=== PATIENT | female | born 1985 | race Caucasian/White ===

== ENCOUNTER 2016-04-19 23:23 | Emergency (ER) | payer MEDICARE, MEDICAID ==
[~2016-04-19] VITALS: Ht 152.4 cm; Wt 66.8 kg
[~2016-04-19 23:23] MED LIST: AMOXICILLIN 50500 MG PO; AMOXICILLIN 8751 TAB PO; CEPHALEXIN500 M1 PO; CLEOCIN HC150 MG/CAP PO; DOXYCYCLINE 10100 MG PO; HUMALOG100 U/ML SC; INSULIN HUMA100 U/ML IJ; LANTUS100 U/ML; LEVEMIR; LORTAB 5/500 501 TAB PO; MOTRIN 600600 MG/TAB PO; NAPROSYN500 MG PO; NORCO 325 MG-51 TAB PO; NOVLOG; NOVLOG SQ; NOVOLOG 100U100 U/M1 SC; NOVOLOG 100U100 U/M1 SQ; NYSTATIN CREAM15 GM TP; PRENATAL1 TA1 PO; PROVENTIL0.09 MG/A1 IH; RISPERDAL 1M1 MG/TAB PO; SEPTRA DS 8001 TAB PO; TOPAMAX 25MG25 M1 PO; TOPAMAX50 MG PO; TRESIBA FL100 UNIT/1 SQ; TRESIBA FL200 UNIT/1 SQ; TYLENOL 325MG325 MG PO; ULTRAM 50MG TAB50 MG PO; ZOFRAN8 MG PO
[2016-04-19 23:26] VITALS: TEMP 97
[2016-04-20 00:07] LABS: VENOUS BLOOD GAS BE -0.5 (-4-4); VENOUS BLOOD GAS SAO2 67.5 % (60-80)
[2016-04-20 00:08] LABS: VENOUS BLOOD GAS SITE VENIPUNCTURE
[2016-04-20 00:11] LABS: BASO % 0.9 % (0.0-2.0); EOS # 0.1 (0.0-0.7); EOS % 2.9 % (0-4.0); GRAN # 2.6 (1.4-6.5); GRAN % 58.3 % (42.2-75.2); HEMATOCRIT 38.2 % (37.0-47.0); HEMOGLOBIN 13.1 g/dl (12.5-16.0); LYMPH # 1.3 (1.2-3.4); LYMPH % 29.2 % (20.0-51.0); MEAN CELL VOLUME 89 fl (80.0-100.0); MEAN CORPUSCULAR HEMOGLOBIN 31 pg (27.0-31.0); MEAN CORPUSCULAR HGB CONC 34 g/dl (33.0-37.0); MEAN PLATELET VOLUME 11.6 fl (7.4-10.4); MONO # 0.4 (0.1-0.6); MONO % 8.5 % (1.7-9.3); PLATELET COUNT 171 K/mm3 (130-400); RED BLOOD COUNT 4.29 M/mm3 (4.10-5.30); REDCELL DISTRIBUTION WIDTH-CV 11.8 % (11.5-14.5); WHITE BLOOD COUNT 4.5 K/mm3 (4.8-10.8)
[2016-04-20 00:20] LABS: ADJUSTED CALCIUM 9.2 mg/dL (8.4-10.2); ALANINE AMINOTRANSFERASE 29 U/L (9-52); ALBUMIN 3.9 gm/dL (3.5-5.0); ALKALINE PHOSPHATASE 84 U/L (50-136); ANION GAP 11 mmol/L (7-16); BILIRUBIN,TOTAL 0.5 mg/dL (0.0-1.0); BLOOD UREA NITROGEN 14 mg/dL (7-17); CALCIUM 9.1 mg/dL (8.4-10.2); CARBON DIOXIDE 26 mmol/L (22-30); CHLORIDE 99 mmol/L (98-107); CREATININE, serum 0.76 mg/dL (0.52-1.25); POTASSIUM 4.6 mmol/L (3.4-5.0); SODIUM 137 mmol/L (137-145); TOTAL PROTEIN 7.2 gm/dL (6.4-8.2)
[2016-04-20 00:24] LABS: GLUCOSE 418 mg/dL (74-106)
[2016-04-20 01:52] VITALS: BP 119/74; PULSE 94
[2016-04-20] MEDS ORDERED: TUSS PO ×2 (16:48→18:52)
[2016-04-20] MEDS ORDERED: ZITHROMAX 250M250 MG PO ×2 (16:48→18:52)
== END 2016-04-20 01:52 | disposition home or self-care (01) ==
LOC: COL.ER 23:23
PROVIDERS: Physician Assistant
DX: E10.65 Type 1 diabetes mellitus with hyperglycemia (principal); Z79.4 Long term (current) use of insulin
CPT/HCPCS: J1815; J2405; J7030

== ENCOUNTER 2016-04-20 15:16 | Emergency (ER) | payer MEDICARE, MEDICAID ==
[~2016-04-20] VITALS: Ht 152.4 cm; Wt 58.6 kg
[2016-04-20 15:21] VITALS: TEMP 97.6
[2016-04-20] MEDS ORDERED: ZITHROMAX 250M250 MG PO ×2 (16:48→18:52)
[2016-04-20] MEDS ORDERED: TUSS PO ×2 (16:48→18:52)
[2016-04-20 17:00] VITALS: BP 118/72; PULSE 84
== END 2016-04-20 17:08 | disposition home or self-care (01) ==
LOC: COL.ER 15:16
DX: E10.65 Type 1 diabetes mellitus with hyperglycemia (principal); Z79.4 Long term (current) use of insulin; J06.9 Acute upper respiratory infection, unspecified
CPT/HCPCS: J1815

== ENCOUNTER 2016-04-20 17:13 | Emergency (ER) | payer MEDICARE, MEDICAID ==
[~2016-04-20] VITALS: Ht 152.4 cm; Wt 58.6 kg
[~2016-04-20 17:13] MED LIST changes: +TUSS PO; +ZITHROMAX 250M250 MG PO
[2016-04-20 17:15] VITALS: TEMP 98
[2016-04-20 18:14] LABS: VENOUS BLOOD GAS BE 1.8 (-4-4); VENOUS BLOOD GAS SAO2 40.1 % (60-80)
[2016-04-20 18:15] LABS: VENOUS BLOOD GAS SITE VENIPUNCTURE
[2016-04-20 18:21] LABS: BASO % 0.8 % (0.0-2.0); EOS # 0.1 (0.0-0.7); EOS % 2.4 % (0-4.0); GRAN # 1.9 (1.4-6.5); GRAN % 49.7 % (42.2-75.2); HEMATOCRIT 40.7 % (37.0-47.0); HEMOGLOBIN 13.9 g/dl (12.5-16.0); LYMPH # 1.5 (1.2-3.4); LYMPH % 39.3 % (20.0-51.0); MEAN CELL VOLUME 89 fl (80.0-100.0); MEAN CORPUSCULAR HEMOGLOBIN 30 pg (27.0-31.0); MEAN CORPUSCULAR HGB CONC 34 g/dl (33.0-37.0); MEAN PLATELET VOLUME 11.7 fl (7.4-10.4); MONO # 0.3 (0.1-0.6); MONO % 7.8 % (1.7-9.3); PLATELET COUNT 188 K/mm3 (130-400); RED BLOOD COUNT 4.58 M/mm3 (4.10-5.30); REDCELL DISTRIBUTION WIDTH-CV 11.8 % (11.5-14.5); WHITE BLOOD COUNT 3.7 K/mm3 (4.8-10.8)
[2016-04-20 18:27] LABS: PH 6 (5-8); URINE APPEARANCE Clear; URINE BACTERIA None Seen /hpf; URINE BILIRUBIN Negative (NEGATIVE); URINE BLOOD Negative (NEGATIVE); URINE COLOR Yellow; URINE GLUCOSE 3+ (NEGATIVE); URINE KETONE Trace (NEGATIVE); URINE RBC 0-2 /hpf; URINE UROBILINOGEN Negative (NEGATIVE); URINE WBC 0-2 /hpf
[2016-04-20 18:32] LABS: ADJUSTED CALCIUM 9.6 mg/dL (8.4-10.2); ALANINE AMINOTRANSFERASE 25 U/L (9-52); ALBUMIN 3.9 gm/dL (3.5-5.0); ALKALINE PHOSPHATASE 74 U/L (50-136); ANION GAP 13 mmol/L (7-16); BILIRUBIN,TOTAL 0.6 mg/dL (0.0-1.0); BLOOD UREA NITROGEN 10 mg/dL (7-17); CALCIUM 9.5 mg/dL (8.4-10.2); CARBON DIOXIDE 26 mmol/L (22-30); CHLORIDE 97 mmol/L (98-107); CREATININE, serum 0.67 mg/dL (0.52-1.25); GLUCOSE 313 mg/dL (74-106); POTASSIUM 4.5 mmol/L (3.4-5.0); SODIUM 136 mmol/L (137-145); TOTAL PROTEIN 7.6 gm/dL (6.4-8.2)
[2016-04-20] MEDS ORDERED: TUSS PO (18:52)
[2016-04-20] MEDS ORDERED: ZITHROMAX 250M250 MG PO (18:52)
[2016-04-20 19:10] VITALS: BP 111/81; PULSE 98
== END 2016-04-20 19:11 | disposition home or self-care (01) ==
LOC: COL.ER 17:13
PROVIDERS: Emergency Medicine
DX: E10.65 Type 1 diabetes mellitus with hyperglycemia (principal); Z79.4 Long term (current) use of insulin; J06.9 Acute upper respiratory infection, unspecified
CPT/HCPCS: J1815; J2405; J7030

== ENCOUNTER 2016-05-13 18:39 | Observation (INO) | payer MEDICARE, MEDICAID ==
[2016-05-13] VITALS (64 sets, daily range): BP systolic 106; BP diastolic 82; PULSE 90; TEMP 97.5; O2SAT 97–100
[~2016-05-13] VITALS: Ht 152.4 cm; Wt 64.3 kg
[2016-05-13 19:36] LABS: BASO # 0.1 (0.0-0.2); EOS # 0.1 (0.0-0.7); EOS % 2.1 % (0-4.0); GRAN # 3.8 (1.4-6.5); GRAN % 61.6 % (42.2-75.2); HEMATOCRIT 40.3 % (37.0-47.0); HEMOGLOBIN 14.1 g/dl (12.5-16.0); LYMPH # 1.8 (1.2-3.4); LYMPH % 29.5 % (20.0-51.0); MEAN CELL VOLUME 87 fl (80.0-100.0); MEAN CORPUSCULAR HEMOGLOBIN 30 pg (27.0-31.0); MEAN CORPUSCULAR HGB CONC 35 g/dl (33.0-37.0); MEAN PLATELET VOLUME 12.1 fl (7.4-10.4); MONO # 0.3 (0.1-0.6); MONO % 5.6 % (1.7-9.3); PLATELET COUNT 237 K/mm3 (130-400); RED BLOOD COUNT 4.64 M/mm3 (4.10-5.30); REDCELL DISTRIBUTION WIDTH-CV 11.9 % (11.5-14.5); WHITE BLOOD COUNT 6.1 K/mm3 (4.8-10.8)
[2016-05-13 19:46] LABS: ADJUSTED CALCIUM 9.3 mg/dL (8.4-10.2); ALANINE AMINOTRANSFERASE 28 U/L (9-52); ALBUMIN 4.7 gm/dL (3.5-5.0); ALKALINE PHOSPHATASE 137 U/L (50-136); ANION GAP 16 mmol/L (7-16); BILIRUBIN,TOTAL 0.7 mg/dL (0.0-1.0); BLOOD UREA NITROGEN 26 mg/dL (7-17); CALCIUM 9.9 mg/dL (8.4-10.2); CARBON DIOXIDE 24 mmol/L (22-30); CHLORIDE 90 mmol/L (98-107); CREATININE, serum 0.94 mg/dL (0.52-1.25); MAGNESIUM 1.6 mg/dL (1.6-2.3); POTASSIUM 4.8 mmol/L (3.4-5.0); SODIUM 130 mmol/L (137-145); TOTAL PROTEIN 8.2 gm/dL (6.4-8.2)
[2016-05-13 19:53] LABS: GLUCOSE 741 mg/dL (74-106)
[2016-05-13 20:11] LABS: PH 6 (5-8); SQUAMOUS EPITHELIAL 0-2 /hpf; URINE APPEARANCE Clear; URINE BACTERIA Rare /hpf; URINE BILIRUBIN Negative (NEGATIVE); URINE BLOOD 2+ (NEGATIVE); URINE COLOR Colorless; URINE GLUCOSE 3+ (NEGATIVE); URINE KETONE Trace (NEGATIVE); URINE UROBILINOGEN Negative (NEGATIVE); URINE WBC 0-2 /hpf
[2016-05-13 20:26] LABS: VENOUS BLOOD GAS BE -1.6 (-4-4); VENOUS BLOOD GAS SAO2 70.7 % (60-80); VENOUS BLOOD GAS SITE VENIPUNCTURE
[2016-05-13] MEDS ORDERED: ZOFRAN8 MG PO (21:13)
[2016-05-13] MEDS ORDERED: PROAIR HFA0.09 MG/AC IH (21:53)
[2016-05-13 22:10] LABS: PHOSPHOROUS 4.6 mg/dL (2.5-4.5)
[2016-05-14] VITALS (574 sets, daily range): BP systolic 99–116; BP diastolic 69–88; PULSE 82–101; TEMP 97.4–97.8; O2SAT 93–100
[2016-05-14 06:41] LABS: CALCIUM 8.7 mg/dL (8.4-10.2); CREATININE, serum 0.66 mg/dL (0.52-1.25); POTASSIUM 3.7 mmol/L (3.4-5.0)
[2016-05-14] MEDS ORDERED: NOVOLOG 100U100 U/M1 SQ (09:09)
[2016-05-14] MEDS ORDERED: TRESIBA FL100 UNIT/1 SQ (09:09)
[2016-05-14] MEDS ORDERED: NOVOLOG FLEX100 U/ML SQ (09:10)
== END 2016-05-14 12:30 | disposition home or self-care (01) ==
LOC: COL.ER 18:39 → ICU 21:02
PROVIDERS: Emergency Medicine; Nurse Practitioner Family
DX: E10.65 Type 1 diabetes mellitus with hyperglycemia (principal); F20.9 Schizophrenia, unspecified; G43.909 Migraine, unspecified, not intractable, without status migrainosus; J45.909 Unspecified asthma, uncomplicated; Z79.4 Long term (current) use of insulin
CPT/HCPCS: G0378; J3475; J7030

== ENCOUNTER 2016-06-09 12:21 | Emergency (ER) | payer MEDICARE, MEDICAID ==
[~2016-06-09] VITALS: Ht 152.4 cm; Wt 57.3 kg
[~2016-06-09 12:21] MED LIST changes: +NOVOLOG FLEX100 U/ML SQ; +PROAIR HFA0.09 MG/AC IH
[2016-06-09 12:26] VITALS: BP 133/73; TEMP 97.7
[2016-06-09] MEDS ORDERED: CIPRODEX OT (14:29)
[2016-06-09 14:40] VITALS: PULSE 101
== END 2016-06-09 14:41 | disposition home or self-care (01) ==
LOC: COL.ER 12:21
DX: H92.01 Otalgia, right ear (principal); E11.9 Type 2 diabetes mellitus without complications; Z79.4 Long term (current) use of insulin; G43.909 Migraine, unspecified, not intractable, without status migrainosus; F20.9 Schizophrenia, unspecified

== ENCOUNTER 2016-06-12 00:40 | Emergency (ER) | payer MEDICARE, MEDICAID ==
[~2016-06-12] VITALS: Ht 152.4 cm; Wt 57.7 kg
[~2016-06-12 00:40] MED LIST changes: +CIPRODEX OT
[2016-06-12 00:43] VITALS: TEMP 97.7
[2016-06-12] MEDS ORDERED: ULTRAM 50MG TAB50 MG PO (01:11)
[2016-06-12 01:38] VITALS: BP 124/72; PULSE 82
== END 2016-06-12 01:38 | disposition home or self-care (01) ==
LOC: COL.ER 00:40
DX: H69.81 Other specified disorders of Eustachian tube, right ear (principal); H92.01 Otalgia, right ear; E10.9 Type 1 diabetes mellitus without complications; Z79.4 Long term (current) use of insulin; G43.909 Migraine, unspecified, not intractable, without status migrainosus

== ENCOUNTER → 2016-07-02 | Outpatient (CLI) | payer MEDICARE, MEDICAID ==
[~2016-07-02] MED LIST changes: +BACTRIM DS 8001 TAB PO
== END ==
LOC: SUN.DIA
DX: E10.65 Type 1 diabetes mellitus with hyperglycemia (principal); Z68.29 Body mass index [BMI] 29.0-29.9, adult; Z71.3 Dietary counseling and surveillance; J45.909 Unspecified asthma, uncomplicated; F20.9 Schizophrenia, unspecified; G43.909 Migraine, unspecified, not intractable, without status migrainosus; Z79.4 Long term (current) use of insulin
CPT/HCPCS: G0108

== ENCOUNTER 2016-09-05 18:19 | Emergency (ER) | payer MEDICARE, MEDICAID ==
[~2016-09-05] VITALS: Ht 152.4 cm; Wt 62.3 kg
[~2016-09-05 18:19] MED LIST changes: -BACTRIM DS 8001 TAB PO
[2016-09-05 18:26] VITALS: BP 121/74; TEMP 97.9
[2016-09-05] MEDS ORDERED: BACTRIM DS 8001 TAB PO (19:04)
[2016-09-05 19:41] VITALS: PULSE 85
== END 2016-09-05 19:41 | disposition home or self-care (01) ==
LOC: COL.ER 18:19
DX: L73.9 Follicular disorder, unspecified (principal); E10.8 Type 1 diabetes mellitus with unspecified complications; Z79.4 Long term (current) use of insulin; T38.3X6A Underdosing of insulin and oral hypoglycemic [antidiabetic] drugs, initial encounter

== ENCOUNTER 2016-10-16 20:03 | Emergency (ER) | payer MEDICARE, MEDICAID ==
[~2016-10-16] VITALS: Ht 152.4 cm; Wt 59.1 kg
[~2016-10-16 20:03] MED LIST changes: +BACTRIM DS 8001 TAB PO
[2016-10-16 20:09] VITALS: BP 127/82; PULSE 85; TEMP 97.8
== END 2016-10-16 21:58 | disposition home or self-care (01) ==
LOC: COL.ER 20:03
DX: H00.012 Hordeolum externum right lower eyelid (principal); E11.9 Type 2 diabetes mellitus without complications; F20.9 Schizophrenia, unspecified; G43.909 Migraine, unspecified, not intractable, without status migrainosus; Z79.4 Long term (current) use of insulin

== ENCOUNTER 2016-11-09 01:12 | Emergency (ER) | payer MEDICARE, MEDICAID ==
[~2016-11-09] VITALS: Ht 152.4 cm; Wt 66.8 kg
[2016-11-09 01:18] VITALS: TEMP 98.5
[2016-11-09 02:13] LABS: BASO # 0.1 (0.0-0.2); BASO % 0.6 % (0.0-2.0); EOS # 0.1 (0.0-0.7); EOS % 1.8 % (0-4.0); GRAN # 5.5 (1.4-6.5); GRAN % 69.4 % (42.2-75.2); HEMATOCRIT 39.2 % (37.0-47.0); HEMOGLOBIN 13.4 g/dl (12.5-16.0); LYMPH # 1.8 (1.2-3.4); LYMPH % 22.7 % (20.0-51.0); MEAN CELL VOLUME 88 fl (80.0-100.0); MEAN CORPUSCULAR HEMOGLOBIN 30 pg (27.0-31.0); MEAN CORPUSCULAR HGB CONC 34 g/dl (33.0-37.0); MEAN PLATELET VOLUME 11.6 fl (7.4-10.4); MONO # 0.4 (0.1-0.6); MONO % 5.2 % (1.7-9.3); PLATELET COUNT 232 K/mm3 (130-400); RED BLOOD COUNT 4.44 M/mm3 (4.10-5.30); REDCELL DISTRIBUTION WIDTH-CV 11.8 % (11.5-14.5); WHITE BLOOD COUNT 7.9 K/mm3 (4.8-10.8)
[2016-11-09 02:15] LABS: ARTERIAL BLD GAS O2 SATURATION 90.9 % (92-100); ARTERIAL BLD GAS TCO2 CT 25.1; ARTERIAL BLOOD GAS BASE EXCESS -0.2 (-2-2); ARTERIAL BLOOD GAS PHT 7.42 C (7.35-7.45); ARTERIAL BLOOD GAS PO2 60.5 mmHg (80-100); ARTERIAL BLOOD GAS PO2T 60.5 (80-100); ARTERIAL BLOOD GAS pH 7.42 (7.35-7.45); OXYHEMOGLOBIN 90.2 %
[2016-11-09 02:16] LABS: ALLEN TEST YES; ALLENS TEST RESULT PASS; ATS? YES
[2016-11-09 02:23] LABS: ANION GAP 14 mmol/L (7-16); BLOOD UREA NITROGEN 19 mg/dL (7-17); CALCIUM 9.9 mg/dL (8.4-10.2); CARBON DIOXIDE 25 mmol/L (22-30); CHLORIDE 91 mmol/L (98-107); POTASSIUM 4.4 mmol/L (3.4-5.0); SODIUM 130 mmol/L (137-145)
[2016-11-09 02:32] LABS: GLUCOSE 730 mg/dL (74-106)
[2016-11-09 05:13] VITALS: BP 119/85; PULSE 97
== END 2016-11-09 05:14 | disposition home or self-care (01) ==
LOC: COL.ER 01:12
PROVIDERS: Physician Assistant
DX: E10.65 Type 1 diabetes mellitus with hyperglycemia (principal); F17.200 Nicotine dependence, unspecified, uncomplicated; Z79.4 Long term (current) use of insulin
CPT/HCPCS: J1815; J7030

== ENCOUNTER 2016-12-09 00:29 | Emergency (ER) | payer MEDICARE, MEDICAID ==
[~2016-12-09] VITALS: Ht 152.4 cm; Wt 59.1 kg
[2016-12-09 00:32] VITALS: BP 131/77; TEMP 97.8
[2016-12-09] MEDS ORDERED: FLEXERIL 1010 MG/TAB PO (02:23)
[2016-12-09] MEDS ORDERED: NAPROXEN 3375 MG/TAB PO (02:23)
[2016-12-09 02:33] VITALS: PULSE 83
== END 2016-12-09 02:34 | disposition home or self-care (01) ==
LOC: COL.ER 00:29
DX: M54.31 Sciatica, right side (principal); E10.9 Type 1 diabetes mellitus without complications; G43.909 Migraine, unspecified, not intractable, without status migrainosus; J45.909 Unspecified asthma, uncomplicated; Z98.818 Other dental procedure status; Z98.890 Other specified postprocedural states

== ENCOUNTER 2017-02-21 01:15 | Emergency (ER) | payer MEDICARE, MEDICAID ==
[~2017-02-21] VITALS: Ht 152.4 cm; Wt 58.6 kg
[~2017-02-21 01:15] MED LIST changes: +CLEOCIN HCL300 MG PO; +FLEXERIL 1010 MG/TAB PO; +NAPROXEN 3375 MG/TAB PO
[2017-02-21 01:54] LABS: BASO % 0.4 % (0.0-2.0); EOS # 0.2 (0.0-0.7); EOS % 1.7 % (0-4.0); GRAN # 7.9 (1.4-6.5); GRAN % 77.1 % (42.2-75.2); HEMATOCRIT 42.3 % (37.0-47.0); HEMOGLOBIN 14.5 g/dl (12.5-16.0); LYMPH # 1.6 (1.2-3.4); LYMPH % 15.4 % (20.0-51.0); MEAN CELL VOLUME 90 fl (80.0-100.0); MEAN CORPUSCULAR HEMOGLOBIN 31 pg (27.0-31.0); MEAN CORPUSCULAR HGB CONC 34 g/dl (33.0-37.0); MEAN PLATELET VOLUME 11.3 fl (7.4-10.4); MONO # 0.5 (0.1-0.6); PLATELET COUNT 258 K/mm3 (130-400); RED BLOOD COUNT 4.72 M/mm3 (4.10-5.30); REDCELL DISTRIBUTION WIDTH-CV 11.9 % (11.5-14.5)
[2017-02-21 02:02] LABS: ACETONE,SERUM NEGATIVE
[2017-02-21 02:03] LABS: ALANINE AMINOTRANSFERASE 33 U/L (9-52); ALBUMIN 4.5 gm/dL (3.5-5.0); ALKALINE PHOSPHATASE 78 U/L (50-136); ANION GAP 11 mmol/L (7-16); AST,SGOT 22 U/L (15-37); BILIRUBIN,TOTAL 0.5 mg/dL (0.0-1.0); BLOOD UREA NITROGEN 19 mg/dL (7-17); CALCIUM 9.8 mg/dL (8.4-10.2); CARBON DIOXIDE 27 mmol/L (22-30); CHLORIDE 100 mmol/L (98-107); CREATININE, serum 0.79 mg/dL (0.52-1.25); GLUCOSE 128 mg/dL (74-106); LIPASE 121 U/L (23-300); POTASSIUM 3.5 mmol/L (3.4-5.0); SODIUM 139 mmol/L (137-145); TOTAL PROTEIN 7.7 gm/dL (6.4-8.2)
[2017-02-21] MEDS ORDERED: PHENERGAN 25 TA25 MG PO (02:10)
[2017-02-21 02:55] LABS: COLLECTION METHOD CLEAN CATCH
[2017-02-21 03:03] LABS: MUCOUS Present /lpf; PH 5 (5-8); SQUAMOUS EPITHELIAL 0-2 /hpf; URINE APPEARANCE Hazy; URINE BACTERIA Moderate /hpf; URINE BILIRUBIN Negative (NEGATIVE); URINE BLOOD 1+ (NEGATIVE); URINE COLOR Yellow; URINE GLUCOSE Negative (NEGATIVE); URINE KETONE Negative (NEGATIVE); URINE LEUKOCYTE ESTERASE Trace (NEGATIVE); URINE NITRATE Positive (NEGATIVE); URINE PROTEIN(semi-quant) 1+ (NEGATIVE); URINE UROBILINOGEN Negative (NEGATIVE)
[2017-02-21] MEDS ORDERED: OMNICEF 300MG300 MG PO ×2 (03:14)
[2017-02-21 04:12] VITALS: PULSE 97; TEMP 97.9
[2017-02-21] MEDS ORDERED: NORCO 325 MG-51 TAB PO (05:25)
[2017-02-21] MEDS ORDERED: CIPRO 500MG TA500 MG PO (05:25)
[2017-02-21 05:35] VITALS: BP 125/76
== END 2017-02-21 05:46 | disposition home or self-care (01) ==
LOC: COL.ER 01:15
PROVIDERS: Emergency Medicine
DX: N39.0 Urinary tract infection, site not specified (principal); K52.9 Noninfective gastroenteritis and colitis, unspecified; E10.9 Type 1 diabetes mellitus without complications; Z79.4 Long term (current) use of insulin
CPT/HCPCS: J0696; J1170; J2405; J2550; J7030; Q9967

== ENCOUNTER 2017-11-18 00:14 | Emergency (ER) | payer MEDICARE, MEDICAID ==
[~2017-11-18] VITALS: Ht 152.4 cm; Wt 57.7 kg
[~2017-11-18 00:14] MED LIST changes: +CIPRO 500MG TA500 MG PO; +OMNICEF 300MG300 MG PO; +PHENERGAN 25 TA25 MG PO
[2017-11-18 00:20] VITALS: BP 133/79; TEMP 97.6
[2017-11-18 01:40] LABS: COLLECTION METHOD CLEAN CATCH
[2017-11-18 01:45] LABS: BASO # 0.1 (0.0-0.2); BASO % 0.8 % (0.0-2.0); EOS # 0.1 (0.0-0.7); EOS % 1.6 % (0-4.0); GRAN # 4.4 (1.4-6.5); HEMATOCRIT 35.8 % (37.0-47.0); HEMOGLOBIN 12.2 g/dl (12.5-16.0); LYMPH # 2.4 (1.2-3.4); LYMPH % 32.4 % (20.0-51.0); MEAN CELL VOLUME 89 fl (80.0-100.0); MEAN CORPUSCULAR HEMOGLOBIN 30 pg (27.0-31.0); MEAN CORPUSCULAR HGB CONC 34 g/dl (33.0-37.0); MONO # 0.5 (0.1-0.6); MONO % 6.1 % (1.7-9.3); PLATELET COUNT 212 K/mm3 (130-400); RED BLOOD COUNT 4.03 M/mm3 (4.10-5.30); REDCELL DISTRIBUTION WIDTH-CV 11.9 % (11.5-14.5)
[2017-11-18 01:48] LABS: MUCOUS Present /lpf; PH 6 (5-8); URINE APPEARANCE Hazy; URINE BACTERIA None Seen /hpf; URINE BILIRUBIN Negative (NEGATIVE); URINE BLOOD 1+ (NEGATIVE); URINE COLOR Yellow; URINE GLUCOSE 3+ (NEGATIVE); URINE KETONE Negative (NEGATIVE); URINE LEUKOCYTE ESTERASE Trace (NEGATIVE); URINE NITRATE Negative (NEGATIVE); URINE PROTEIN(semi-quant) Negative (NEGATIVE); URINE UROBILINOGEN Negative (NEGATIVE)
[2017-11-18 01:54] LABS: ALBUMIN 3.7 gm/dL (3.5-5.0); BILIRUBIN,TOTAL 0.3 mg/dL (0.0-1.0); CREATININE, serum 0.7 mg/dL (0.52-1.25); POTASSIUM 3.7 mmol/L (3.4-5.0)
[2017-11-18 03:42] VITALS: PULSE 79
== END 2017-11-18 03:42 | disposition home or self-care (01) ==
LOC: COL.ER 00:14
PROVIDERS: Emergency Medicine
DX: E10.10 Type 1 diabetes mellitus with ketoacidosis without coma (principal); Z79.899 Other long term (current) drug therapy
CPT/HCPCS: J2405; J7030

== ENCOUNTER 2018-03-11 23:52 | Emergency (ER) | payer MEDICARE, MEDICAID ==
[~2018-03-11] VITALS: Ht 152.4 cm; Wt 59.1 kg
[2018-03-11 23:55] VITALS: TEMP 98.2
[2018-03-12 00:27] LABS: BASO # 0.1 (0.0-0.2); BASO % 0.9 % (0.0-2.0); EOS # 0.2 (0.0-0.7); EOS % 2.4 % (0-4.0); GRAN # 5.5 (1.4-6.5); GRAN % 69.3 % (42.2-75.2); HEMATOCRIT 41.5 % (37.0-47.0); HEMOGLOBIN 14.3 g/dl (12.5-16.0); LYMPH # 1.6 (1.2-3.4); LYMPH % 19.8 % (20.0-51.0); MEAN CELL VOLUME 90 fl (80.0-100.0); MEAN CORPUSCULAR HEMOGLOBIN 31 pg (27.0-31.0); MEAN CORPUSCULAR HGB CONC 35 g/dl (33.0-37.0); MEAN PLATELET VOLUME 12.2 fl (7.4-10.4); MONO # 0.6 (0.1-0.6); MONO % 7.1 % (1.7-9.3); PLATELET COUNT 213 K/mm3 (130-400); RED BLOOD COUNT 4.63 M/mm3 (4.10-5.30); REDCELL DISTRIBUTION WIDTH-CV 11.9 % (11.5-14.5)
[2018-03-12 00:35] LABS: COLLECTION METHOD CLEAN CATCH
[2018-03-12 00:41] LABS: MUCOUS Present /lpf; PH 7 (5-8); URINE APPEARANCE Clear; URINE BACTERIA None Seen /hpf; URINE BILIRUBIN Negative (NEGATIVE); URINE BLOOD 1+ (NEGATIVE); URINE COLOR Straw; URINE GLUCOSE 3+ (NEGATIVE); URINE KETONE Negative (NEGATIVE); URINE LEUKOCYTE ESTERASE 1+ (NEGATIVE); URINE NITRATE Negative (NEGATIVE); URINE PROTEIN(semi-quant) Negative (NEGATIVE); URINE RBC 0-2 /hpf; URINE UROBILINOGEN Negative (NEGATIVE)
[2018-03-12 00:41] LABS: ALANINE AMINOTRANSFERASE 42 U/L (9-52); ALBUMIN 4.2 gm/dL (3.5-5.0); ALKALINE PHOSPHATASE 109 U/L (50-136); ANION GAP 10 mmol/L (7-16); AST,SGOT 33 U/L (15-37); BILIRUBIN,TOTAL 0.4 mg/dL (0.0-1.0); BLOOD UREA NITROGEN 13 mg/dL (7-17); CALCIUM 9.8 mg/dL (8.4-10.2); CARBON DIOXIDE 26 mmol/L (22-30); CHLORIDE 101 mmol/L (98-107); CREATININE, serum 0.65 mg/dL (0.52-1.25); GLUCOSE 297 mg/dL (74-106); LIPASE 75 U/L (23-300); POTASSIUM 4.3 mmol/L (3.4-5.0); SODIUM 137 mmol/L (137-145); TOTAL PROTEIN 7.3 gm/dL (6.4-8.2)
[2018-03-12 00:46] LABS: ACETONE,SERUM NEGATIVE
[2018-03-12] MEDS ORDERED: ZITHROMAX 250M250 MG PO (01:21)
[2018-03-12 01:35] VITALS: BP 123/78; PULSE 86
== END 2018-03-12 01:35 | disposition home or self-care (01) ==
LOC: COL.ER 23:52
PROVIDERS: Emergency Medicine
DX: E10.65 Type 1 diabetes mellitus with hyperglycemia (principal); J40 Bronchitis, not specified as acute or chronic; G43.909 Migraine, unspecified, not intractable, without status migrainosus; Z88.1 Allergy status to other antibiotic agents; Z90.89 Acquired absence of other organs
CPT/HCPCS: J7030

== ENCOUNTER 2018-05-16 20:28 | Emergency (ER) | payer MEDICARE, MEDICAID ==
[~2018-05-16] VITALS: Ht 152.4 cm; Wt 61.4 kg
[2018-05-16 20:30] VITALS: BP 132/82; TEMP 97.4
[2018-05-16 21:40] VITALS: PULSE 79
== END 2018-05-16 21:41 | disposition home or self-care (01) ==
LOC: COL.ER 20:28
DX: M25.531 Pain in right wrist (principal); Z96.22 Myringotomy tube(s) status; Z79.4 Long term (current) use of insulin

== ENCOUNTER 2018-10-21 01:30 | Emergency (ER) | payer MEDICARE, MEDICAID ==
[~2018-10-21] VITALS: Ht 152.4 cm; Wt 57.7 kg
[2018-10-21 01:45] VITALS: BP 111/73; TEMP 98.7
[2018-10-21] MEDS ORDERED: INDOCIN 25MG CA25 MG PO (01:52)
[2018-10-21] MEDS ORDERED: CEFTIN 250250 MG/TAB PO (01:52)
[2018-10-21] MEDS ORDERED: TYLENOL 500MG500 MG PO (01:54)
[2018-10-21] MEDS ORDERED: NORCO 325 MG-51 TAB PO (02:31)
[2018-10-21 02:43] VITALS: PULSE 92
== END 2018-10-21 02:43 | disposition home or self-care (01) ==
LOC: COL.ER 01:30
DX: K04.7 Periapical abscess without sinus (principal); K05.10 Chronic gingivitis, plaque induced; E10.9 Type 1 diabetes mellitus without complications; F17.210 Nicotine dependence, cigarettes, uncomplicated; Z79.899 Other long term (current) drug therapy

== ENCOUNTER 2019-07-09 05:39 | Emergency (ER) | payer MEDICARE, MEDICAID ==
[~2019-07-09] VITALS: Ht 152.4 cm; Wt 62.3 kg
[~2019-07-09 05:39] MED LIST changes: +CEFTIN 250250 MG/TAB PO; +INDOCIN 25MG CA25 MG PO; +TYLENOL 500MG500 MG PO
[2019-07-09 06:35] LABS: BASO # 0.1 (0.0-0.2); BASO % 0.5 % (0.0-2.0); EOS # 0.1 (0.0-0.7); EOS % 1.2 % (0-4.0); GRAN # 7.6 (1.4-6.5); GRAN % 76.6 % (42.2-75.2); HEMATOCRIT 41.1 % (37.0-47.0); HEMOGLOBIN 13.9 g/dl (12.5-16.0); LYMPH # 1.4 (1.2-3.4); LYMPH % 14.2 % (20.0-51.0); MEAN CELL VOLUME 90 fl (80.0-100.0); MEAN CORPUSCULAR HEMOGLOBIN 30 pg (27.0-31.0); MEAN CORPUSCULAR HGB CONC 34 g/dl (33.0-37.0); MEAN PLATELET VOLUME 11.4 fl (7.4-10.4); MONO # 0.7 (0.1-0.6); PLATELET COUNT 234 K/mm3 (130-400); RED BLOOD COUNT 4.58 M/mm3 (4.10-5.30); REDCELL DISTRIBUTION WIDTH-CV 11.6 % (11.5-14.5)
[2019-07-09 06:38] LABS: COLLECTION METHOD CLEAN CATCH
[2019-07-09 06:43] LABS: MUCOUS Present /lpf; PH 7 (5-8); URINE APPEARANCE Clear; URINE BACTERIA None Seen /hpf; URINE BILIRUBIN Negative (NEGATIVE); URINE BLOOD 1+ (NEGATIVE); URINE COLOR Yellow; URINE GLUCOSE 3+ (NEGATIVE); URINE KETONE Negative (NEGATIVE); URINE LEUKOCYTE ESTERASE Negative (NEGATIVE); URINE NITRATE Negative (NEGATIVE); URINE PROTEIN(semi-quant) Negative (NEGATIVE); URINE UROBILINOGEN Negative (NEGATIVE)
[2019-07-09 06:45] LABS: ALBUMIN 3.9 gm/dL (3.5-5.0); BILIRUBIN,TOTAL 0.6 mg/dL (0.0-1.0); CALCIUM 9.4 mg/dL (8.4-10.2); CREATININE, serum 0.66 (0.52-1.25); POTASSIUM 4.3 mmol/L (3.4-5.0); TOTAL PROTEIN 7.5 gm/dL (6.4-8.2)
[2019-07-09] MEDS ORDERED: FLEXERIL 1010 MG/TAB PO (07:00)
[2019-07-09 07:11] VITALS: BP 119/84; PULSE 87; TEMP 97.8
== END 2019-07-09 07:11 | disposition home or self-care (01) ==
LOC: COL.ER 05:39
PROVIDERS: Emergency Medicine
DX: S39.012A Strain of muscle, fascia and tendon of lower back, initial encounter (principal); E10.9 Type 1 diabetes mellitus without complications; G43.909 Migraine, unspecified, not intractable, without status migrainosus; X58.XXXA Exposure to other specified factors, initial encounter

== ENCOUNTER 2019-09-08 22:53 | Emergency (ER) | payer MEDICARE, MEDICAID ==
[~2019-09-08] VITALS: Ht 152.4 cm; Wt 60.0 kg
[2019-09-08 23:00] VITALS: TEMP 97.7
[2019-09-08 23:27] LABS: BASO # 0.1 (0.0-0.2); BASO % 0.9 % (0.0-2.0); EOS # 0.2 (0.0-0.7); EOS % 2.1 % (0-4.0); GRAN # 5.2 (1.4-6.5); HEMATOCRIT 42.6 % (37.0-47.0); HEMOGLOBIN 14.2 g/dl (12.5-16.0); LYMPH # 2.7 (1.2-3.4); LYMPH % 30.7 % (20.0-51.0); MEAN CELL VOLUME 92 fl (80.0-100.0); MEAN CORPUSCULAR HEMOGLOBIN 31 pg (27.0-31.0); MEAN CORPUSCULAR HGB CONC 33 g/dl (33.0-37.0); MEAN PLATELET VOLUME 10.6 fl (7.4-10.4); MONO # 0.6 (0.1-0.6); PLATELET COUNT 293 K/mm3 (130-400); RED BLOOD COUNT 4.64 M/mm3 (4.10-5.30); REDCELL DISTRIBUTION WIDTH-CV 12.1 % (11.5-14.5)
[2019-09-08 23:34] LABS: ALANINE AMINOTRANSFERASE 31 U/L (4-34); ALBUMIN 4.2 gm/dL (3.5-5.0); ALKALINE PHOSPHATASE 88 U/L (50-136); ANION GAP 7 mmol/L (7-16); AST,SGOT 38 U/L (15-37); BILIRUBIN,TOTAL 0.5 mg/dL (0.0-1.0); BLOOD UREA NITROGEN 16 mg/dL (7-17); CALCIUM 9.6 mg/dL (8.4-10.2); CARBON DIOXIDE 28 mmol/L (22-30); CHLORIDE 104 mmol/L (98-107); CREATININE, serum 0.79 (0.52-1.25); GLUCOSE 54 mg/dL (74-106); POTASSIUM 4.2 mmol/L (3.4-5.0); SODIUM 139 mmol/L (137-145); TOTAL PROTEIN 7.9 gm/dL (6.4-8.2)
[2019-09-08 23:36] LABS: PROTHROMBIN TIME 11.7 SECONDS (9.7-12.8)
[2019-09-08 23:45] LABS: TROPONIN-I < 0.012 ng/mL (0.000-0.035)
[2019-09-09 01:48] VITALS: BP 109/71; PULSE 87
== END 2019-09-09 01:48 | disposition home or self-care (01) ==
LOC: COL.ER 22:53
PROVIDERS: Nurse Practitioner Primary Care
DX: R07.89 Other chest pain (principal); E10.9 Type 1 diabetes mellitus without complications; J45.909 Unspecified asthma, uncomplicated
CPT/HCPCS: J1885; J2405; J7030

== ENCOUNTER 2019-10-08 22:03 | Emergency (ER) | payer MEDICARE, MEDICAID ==
[~2019-10-08] VITALS: Ht 152.4 cm; Wt 60.0 kg
[2019-10-08 22:30] VITALS: BP 122/75; TEMP 98.2
[2019-10-08] MEDS ORDERED: DOXYCYCLINE 10100 MG PO (23:17)
[2019-10-08 23:18] VITALS: PULSE 89
== END 2019-10-08 23:23 | disposition home or self-care (01) ==
LOC: COL.ER 22:03
DX: S40.862A Insect bite (nonvenomous) of left upper arm, initial encounter (principal); E10.9 Type 1 diabetes mellitus without complications; G43.909 Migraine, unspecified, not intractable, without status migrainosus; F17.200 Nicotine dependence, unspecified, uncomplicated; Z79.4 Long term (current) use of insulin; Z88.1 Allergy status to other antibiotic agents; Z88.8 Allergy status to other drugs, medicaments and biological substances; W57.XXXA Bitten or stung by nonvenomous insect and other nonvenomous arthropods, initial encounter

== ENCOUNTER 2019-10-18 09:57 | Emergency (ER) | payer MEDICARE, MEDICAID ==
[~2019-10-18] VITALS: Ht 152.4 cm; Wt 61.4 kg
[2019-10-18 09:58] VITALS: BP 141/92; TEMP 97.9
[2019-10-18 10:20] LABS: BASO # 0.1 (0.0-0.2); BASO % 0.4 % (0.0-2.0); EOS # 0.1 (0.0-0.7); EOS % 0.7 % (0-4.0); GRAN # 9.9 (1.4-6.5); GRAN % 83.9 % (42.2-75.2); HEMATOCRIT 43.1 % (37.0-47.0); HEMOGLOBIN 14.6 g/dl (12.5-16.0); LYMPH # 1.2 (1.2-3.4); LYMPH % 9.8 % (20.0-51.0); MEAN CELL VOLUME 91 fl (80.0-100.0); MEAN CORPUSCULAR HEMOGLOBIN 31 pg (27.0-31.0); MEAN CORPUSCULAR HGB CONC 34 g/dl (33.0-37.0); MEAN PLATELET VOLUME 10.9 fl (7.4-10.4); MONO # 0.6 (0.1-0.6); MONO % 4.6 % (1.7-9.3); PLATELET COUNT 266 K/mm3 (130-400); RED BLOOD COUNT 4.73 M/mm3 (4.10-5.30); REDCELL DISTRIBUTION WIDTH-CV 11.9 % (11.5-14.5)
[2019-10-18 10:21] LABS: ALANINE AMINOTRANSFERASE 26 U/L (4-34); ALBUMIN 4.3 gm/dL (3.5-5.0); ALKALINE PHOSPHATASE 76 U/L (50-136); ANION GAP 8 mmol/L (7-16); AST,SGOT 33 U/L (15-37); BILIRUBIN,TOTAL 0.4 mg/dL (0.0-1.0); BLOOD UREA NITROGEN 15 mg/dL (7-17); C-REACTIVE PROTEIN < 0.5 mg/dL (0.0-0.9); CALCIUM 9.3 mg/dL (8.4-10.2); CARBON DIOXIDE 27 mmol/L (22-30); CHLORIDE 102 mmol/L (98-107); CREATININE, serum 0.82 (0.52-1.25); GLUCOSE 138 mg/dL (74-106); POTASSIUM 4.1 mmol/L (3.4-5.0); SODIUM 137 mmol/L (137-145)
[2019-10-18 12:59] VITALS: PULSE 98
== END 2019-10-18 13:00 | disposition home or self-care (01) ==
LOC: COL.ER 09:57
PROVIDERS: Family Medicine
DX: E16.2 Hypoglycemia, unspecified (principal); E10.9 Type 1 diabetes mellitus without complications; Z79.4 Long term (current) use of insulin; Z88.1 Allergy status to other antibiotic agents; Z88.8 Allergy status to other drugs, medicaments and biological substances
CPT/HCPCS: J0780; J2405; J7120

== ENCOUNTER 2019-11-19 20:47 | Emergency (ER) | payer MEDICARE, MEDICAID ==
[~2019-11-19] VITALS: Ht 152.4 cm; Wt 62.3 kg
[2019-11-19 23:23] LABS: BASO # 0.1 (0.0-0.2); BASO % 0.9 % (0.0-2.0); EOS # 0.2 (0.0-0.7); EOS % 1.8 % (0-4.0); GRAN # 5.5 (1.4-6.5); GRAN % 67.4 % (42.2-75.2); HEMATOCRIT 40.8 % (37.0-47.0); HEMOGLOBIN 13.9 g/dl (12.5-16.0); LYMPH # 1.9 (1.2-3.4); LYMPH % 23.8 % (20.0-51.0); MEAN CELL VOLUME 90 fl (80.0-100.0); MEAN CORPUSCULAR HEMOGLOBIN 31 pg (27.0-31.0); MEAN CORPUSCULAR HGB CONC 34 g/dl (33.0-37.0); MEAN PLATELET VOLUME 11.9 fl (7.4-10.4); MONO # 0.5 (0.1-0.6); MONO % 5.9 % (1.7-9.3); PLATELET COUNT 260 K/mm3 (130-400); RED BLOOD COUNT 4.55 M/mm3 (4.10-5.30); REDCELL DISTRIBUTION WIDTH-CV 11.9 % (11.5-14.5)
[2019-11-19 23:39] LABS: ALBUMIN 4.3 gm/dL (3.5-5.0); BILIRUBIN,TOTAL 0.5 mg/dL (0.0-1.0); C-REACTIVE PROTEIN 0.7 mg/dL (0.0-0.9); CALCIUM 9.6 mg/dL (8.4-10.2); CREATININE, serum 0.8 (0.52-1.25); POTASSIUM 4.1 mmol/L (3.4-5.0); TOTAL PROTEIN 7.7 gm/dL (6.4-8.2); URIC ACID 5.3 mg/dL (2.5-6.2)
[2019-11-20] MEDS ORDERED: NORCO 325 MG-51 TAB PO (00:05)
[2019-11-20 00:59] VITALS: BP 118/64; PULSE 74; TEMP 97.6
== END 2019-11-20 01:03 | disposition home or self-care (01) ==
LOC: COL.ER 20:47
PROVIDERS: Nurse Practitioner Primary Care
DX: M79.671 Pain in right foot (principal); E10.9 Type 1 diabetes mellitus without complications

== ENCOUNTER 2020-10-03 02:49 | Emergency (ER) | payer MEDICARE, MEDICAID ==
[~2020-10-03] VITALS: Ht 152.4 cm; Wt 65.9 kg
[2020-10-03 03:10] LABS: BASO % 0.3 % (0.0-2.0); EOS # 0.1 (0.0-0.7); EOS % 0.8 % (0-4.0); GRAN # 10.4 (1.4-6.5); GRAN % 84.4 % (42.2-75.2); HEMATOCRIT 42.5 % (37.0-47.0); HEMOGLOBIN 14.1 g/dl (12.5-16.0); LYMPH # 1.2 (1.2-3.4); LYMPH % 9.5 % (20.0-51.0); MEAN CELL VOLUME 92 fl (80.0-100.0); MEAN CORPUSCULAR HEMOGLOBIN 31 pg (27.0-31.0); MEAN CORPUSCULAR HGB CONC 33 g/dl (33.0-37.0); MONO # 0.6 (0.1-0.6); MONO % 4.5 % (1.7-9.3); PLATELET COUNT 284 K/mm3 (130-400); RED BLOOD COUNT 4.61 M/mm3 (4.10-5.30); REDCELL DISTRIBUTION WIDTH-CV 12.1 % (11.5-14.5)
[2020-10-03 03:21] LABS: ALBUMIN 4.4 gm/dL (3.5-5.0); BILIRUBIN,TOTAL 0.2 mg/dL (0.0-1.0); CALCIUM 9.1 mg/dL (8.4-10.2); CREATININE, serum 0.88 (0.52-1.25); TOTAL PROTEIN 8.1 gm/dL (6.4-8.2)
[2020-10-03 06:04] VITALS: BP 114/73; PULSE 99; TEMP 98.3
== END 2020-10-03 06:01 | disposition home or self-care (01) ==
LOC: COL.ER 02:49
PROVIDERS: Emergency Medicine Emergency Medical Services
DX: E10.649 Type 1 diabetes mellitus with hypoglycemia without coma (principal); E87.6 Hypokalemia; R94.5 Abnormal results of liver function studies; R41.82 Altered mental status, unspecified; E10.10 Type 1 diabetes mellitus with ketoacidosis without coma
CPT/HCPCS: J2405; J2550; J3480; J7040

== ENCOUNTER → 2020-12-17 | Outpatient (CLI) | payer MEDICARE, MEDICAID | LOC: COL.RAD 06:31 | DX: R10.11 Right upper quadrant pain (principal) | CPT/HCPCS: A9537; J2805 ==

== ENCOUNTER 2021-03-17 19:10 | Emergency (ER) | payer MEDICARE, MEDICAID ==
[~2021-03-17] VITALS: Ht 152.4 cm; Wt 68.2 kg
[2021-03-17 21:20] VITALS: BP 134/95; PULSE 86; TEMP 98
== END 2021-03-17 21:21 | disposition home or self-care (01) ==
LOC: COL.ER 19:10
DX: G43.909 Migraine, unspecified, not intractable, without status migrainosus (principal); E10.9 Type 1 diabetes mellitus without complications; Z79.4 Long term (current) use of insulin
CPT/HCPCS: J1200; J1885; J2765

== ENCOUNTER 2021-04-16 20:44 | Emergency (ER) | payer MEDICARE, MEDICAID ==
[~2021-04-16] VITALS: Ht 152.4 cm; Wt 68.2 kg
[2021-04-16 20:49] VITALS: TEMP 98.2
[2021-04-16 20:59] LABS: BASO # 0.1 K/mm3 (0.0-0.2); BASO % 0.9 % (0.0-2.0); EOS # 0.1 K/mm3 (0.0-0.7); EOS % 1.9 % (0.0-4.0); GRAN # 3.2 K/mm3 (1.4-6.5); GRAN % 56.4 % (42.2-75.2); HEMATOCRIT 42.4 % (37.0-47.0); HEMOGLOBIN 14.3 g/dl (12.5-16.0); LYMPH # 1.9 K/mm3 (1.2-3.4); LYMPH % 32.7 % (20.0-51.0); MEAN CELL VOLUME 90 fl (80.0-100.0); MEAN CORPUSCULAR HEMOGLOBIN 31 pg (27-31); MEAN CORPUSCULAR HGB CONC 34 g/dl (33.0-37.0); MEAN PLATELET VOLUME 12.5 fl (7.4-10.4); MONO # 0.5 K/mm3 (0.1-0.6); MONO % 7.9 % (1.7-9.3); PLATELET COUNT 223 K/mm3 (130-400); RED BLOOD COUNT 4.69 M/mm3 (4.10-5.30); REDCELL DISTRIBUTION WIDTH-CV 12.2 % (11.5-14.5)
[2021-04-16 21:20] LABS: BILIRUBIN,TOTAL 0.4 mg/dL (0.2-1.2); CALCIUM 9.9 mg/dL (8.4-10.2); CREATININE, serum 1.06 mg/dL (0.57-1.11); POTASSIUM 3.7 mmol/L (3.5-4.5); TOTAL PROTEIN 7.9 gm/dL (6.2-8.1)
[2021-04-16 21:25] LABS: TROPONIN-I 0.014 ng/mL (0.00-0.033)
[2021-04-17 00:10] VITALS: BP 109/75; PULSE 94
== END 2021-04-17 00:22 | disposition home or self-care (01) ==
LOC: COL.ER 20:44
PROVIDERS: Emergency Medicine
DX: R00.2 Palpitations (principal); R07.9 Chest pain, unspecified
CPT/HCPCS: J7030; Q9967

== ENCOUNTER 2021-07-17 19:10 | Emergency (ER) | payer MEDICARE, MEDICAID ==
[~2021-07-17] VITALS: Ht 152.4 cm; Wt 62.3 kg
[2021-07-17 19:26] VITALS: TEMP 98.7
[2021-07-17 19:53] LABS: BASO % 0.7 % (0.0-2.0); EOS # 0.1 K/mm3 (0.0-0.7); EOS % 0.8 % (0.0-4.0); GRAN # 4.3 K/mm3 (1.4-6.5); GRAN % 71.2 % (42.2-75.2); HEMATOCRIT 40.9 % (37.0-47.0); HEMOGLOBIN 13.6 g/dl (12.5-16.0); LYMPH # 1.3 K/mm3 (1.2-3.4); MEAN CELL VOLUME 92 fl (80.0-100.0); MEAN CORPUSCULAR HEMOGLOBIN 31 pg (27-31); MEAN CORPUSCULAR HGB CONC 33 g/dl (33.0-37.0); MEAN PLATELET VOLUME 13.6 fl (7.4-10.4); MONO # 0.3 K/mm3 (0.1-0.6); PLATELET COUNT 186 K/mm3 (130-400); RED BLOOD COUNT 4.45 M/mm3 (4.10-5.30); REDCELL DISTRIBUTION WIDTH-CV 12.3 % (11.5-14.5)
[2021-07-17 20:02] LABS: ALBUMIN 3.9 gm/dL (3.5-5.0); BILIRUBIN,TOTAL 0.6 mg/dL (0.2-1.2); C-REACTIVE PROTEIN 0.18 mg/dL (0.00-0.50); CALCIUM 8.8 mg/dL (8.4-10.2); CREATININE, serum 1.21 mg/dL (0.57-1.11); TOTAL PROTEIN 8.2 gm/dL (6.2-8.1)
[2021-07-17 20:03] LABS: POTASSIUM 5.8 mmol/L (3.5-4.5)
[2021-07-17 20:45] LABS: COLLECTION METHOD CLEAN CATCH
[2021-07-17 21:19] LABS: PH 5 (5-8); SQUAMOUS EPITHELIAL 0-2 /hpf (0-10); URINE APPEARANCE Clear (CLEAR/HAZY); URINE BACTERIA Rare /hpf (NONE SEEN); URINE BILIRUBIN Negative (NEGATIVE); URINE BLOOD 1+ (NEGATIVE); URINE COLOR Straw (YELLOW); URINE GLUCOSE 3+ (NEGATIVE); URINE KETONE 2+ (NEGATIVE); URINE LEUKOCYTE ESTERASE Negative (NEGATIVE); URINE NITRATE Negative (NEGATIVE); URINE PROTEIN(semi-quant) Negative (NEGATIVE); URINE RBC 0-2 /hpf (0-2); URINE UROBILINOGEN Negative (NEGATIVE)
[2021-07-17 22:59] VITALS: BP 127/87; PULSE 106
[2021-07-17 23:01] LABS: CALCIUM 8.4 mg/dL (8.4-10.2); CREATININE, serum 0.8 mg/dL (0.57-1.11); POTASSIUM 3.5 mmol/L (3.5-4.5)
== END 2021-07-17 23:00 | disposition home or self-care (01) ==
LOC: COL.ER 19:10
PROVIDERS: Family Medicine
DX: E10.65 Type 1 diabetes mellitus with hyperglycemia (principal); E86.0 Dehydration; Z32.02 Encounter for pregnancy test, result negative
CPT/HCPCS: J1815; J2405; J7030; J7120

== ENCOUNTER → 2021-08-22 | Outpatient (CLI) | payer MEDICARE, MEDICAID ==
[~2021-08-22] MED LIST changes: +ZOFRAN ODT4 MG PO
== END ==
LOC: COL.RAD 15:19
DX: R10.11 Right upper quadrant pain (principal); R14.0 Abdominal distension (gaseous)

== ENCOUNTER 2021-08-23 02:10 | Emergency (ER) | payer MEDICARE, MEDICAID ==
[~2021-08-23] VITALS: Ht 152.4 cm; Wt 60.0 kg
[~2021-08-23 02:10] MED LIST changes: -ZOFRAN ODT4 MG PO
[2021-08-23 02:43] LABS: COLLECTION METHOD CLEAN CATCH
[2021-08-23 02:44] LABS: BASO # 0.1 K/mm3 (0.0-0.2); EOS # 0.1 K/mm3 (0.0-0.7); EOS % 1.8 % (0.0-4.0); GRAN % 59.4 % (42.2-75.2); HEMATOCRIT 37.4 % (37.0-47.0); HEMOGLOBIN 12.6 g/dl (12.5-16.0); LYMPH # 2.2 K/mm3 (1.2-3.4); LYMPH % 31.8 % (20.0-51.0); MEAN CELL VOLUME 91 fl (80.0-100.0); MEAN CORPUSCULAR HEMOGLOBIN 31 pg (27-31); MEAN CORPUSCULAR HGB CONC 34 g/dl (33.0-37.0); MEAN PLATELET VOLUME 12.2 fl (7.4-10.4); MONO # 0.4 K/mm3 (0.1-0.6); MONO % 5.9 % (1.7-9.3); PLATELET COUNT 225 K/mm3 (130-400); RED BLOOD COUNT 4.11 M/mm3 (4.10-5.30)
[2021-08-23 02:54] LABS: MUCOUS Present (NOT PRESENT); PH 6 (5-8); URINE APPEARANCE Clear (CLEAR/HAZY); URINE BACTERIA None Seen /hpf (NONE SEEN); URINE BILIRUBIN Negative (NEGATIVE); URINE BLOOD Negative (NEGATIVE); URINE COLOR Yellow (YELLOW); URINE GLUCOSE 3+ (NEGATIVE); URINE KETONE Negative (NEGATIVE); URINE LEUKOCYTE ESTERASE Negative (NEGATIVE); URINE NITRATE Negative (NEGATIVE); URINE PROTEIN(semi-quant) Negative (NEGATIVE); URINE RBC 0-2 /hpf (0-2); URINE UROBILINOGEN Negative (NEGATIVE)
[2021-08-23 03:03] LABS: ALBUMIN 3.5 gm/dL (3.5-5.0); BILIRUBIN,TOTAL 0.4 mg/dL (0.2-1.2); C-REACTIVE PROTEIN 0.12 mg/dL (0.00-0.50); CREATININE, serum 0.92 mg/dL (0.57-1.11); POTASSIUM 3.6 mmol/L (3.5-4.5); TOTAL PROTEIN 7.1 gm/dL (6.2-8.1)
[2021-08-23] MEDS ORDERED: NORCO 325 MG-51 TAB PO (03:33)
[2021-08-23] MEDS ORDERED: ZOFRAN ODT4 MG PO (03:33)
[2021-08-23 03:48] VITALS: BP 129/79; PULSE 82; TEMP 98.2
== END 2021-08-23 03:48 | disposition home or self-care (01) ==
LOC: COL.ER 02:10
PROVIDERS: Emergency Medicine
DX: R10.11 Right upper quadrant pain (principal); R11.0 Nausea; Z32.02 Encounter for pregnancy test, result negative
CPT/HCPCS: J2405; J3010; J7030

== ENCOUNTER 2021-09-04 01:11 | Emergency (ER) | payer MEDICARE, MEDICAID ==
[~2021-09-04] VITALS: Ht 152.4 cm; Wt 60.0 kg
[~2021-09-04 01:11] MED LIST changes: +ZOFRAN ODT4 MG PO
[2021-09-04 01:21] VITALS: TEMP 97.7
[2021-09-04 01:56] LABS: COLLECTION METHOD CLEAN CATCH
[2021-09-04 02:00] LABS: BASO # 0.1 K/mm3 (0.0-0.2); BASO % 0.7 % (0.0-2.0); EOS # 0.2 K/mm3 (0.0-0.7); EOS % 1.5 % (0.0-4.0); GRAN # 7.2 K/mm3 (1.4-6.5); GRAN % 72.4 % (42.2-75.2); HEMATOCRIT 39.8 % (37.0-47.0); HEMOGLOBIN 13.4 g/dl (12.5-16.0); LYMPH % 19.8 % (20.0-51.0); MEAN CELL VOLUME 91 fl (80.0-100.0); MEAN CORPUSCULAR HEMOGLOBIN 31 pg (27-31); MEAN CORPUSCULAR HGB CONC 34 g/dl (33.0-37.0); MEAN PLATELET VOLUME 12.5 fl (7.4-10.4); MONO # 0.5 K/mm3 (0.1-0.6); MONO % 5.4 % (1.7-9.3); PLATELET COUNT 227 K/mm3 (130-400); RED BLOOD COUNT 4.37 M/mm3 (4.10-5.30); REDCELL DISTRIBUTION WIDTH-CV 11.9 % (11.5-14.5)
[2021-09-04 02:20] LABS: ALBUMIN 3.8 gm/dL (3.5-5.0); BILIRUBIN,TOTAL 0.4 mg/dL (0.2-1.2); C-REACTIVE PROTEIN 0.16 mg/dL (0.00-0.50); CALCIUM 9.5 mg/dL (8.4-10.2); CREATININE, serum 0.96 mg/dL (0.57-1.11); POTASSIUM 3.8 mmol/L (3.5-4.5); TOTAL PROTEIN 7.5 gm/dL (6.2-8.1)
[2021-09-04 02:42] LABS: MUCOUS Present (NOT PRESENT); PH 5 (5-8); URINE APPEARANCE Turbid (CLEAR/HAZY); URINE BACTERIA Moderate /hpf (NONE SEEN); URINE BLOOD Negative (NEGATIVE); URINE COLOR Yellow (YELLOW); URINE GLUCOSE 2+ (NEGATIVE); URINE KETONE 1+ (NEGATIVE); URINE NITRATE Negative (NEGATIVE); URINE PROTEIN(semi-quant) 1+ (NEGATIVE); URINE RBC 20-50 /hpf (0-2); URINE UROBILINOGEN Negative (NEGATIVE)
[2021-09-04] MEDS ORDERED: OMNICEF 300MG300 MG PO (02:55)
[2021-09-04 03:19] VITALS: BP 122/85; PULSE 69
== END 2021-09-04 03:31 | disposition home or self-care (01) ==
LOC: COL.ER 01:11
PROVIDERS: Family Medicine
DX: N39.0 Urinary tract infection, site not specified (principal); Z88.1 Allergy status to other antibiotic agents
CPT/HCPCS: J0696; J2270; J2405; J7120

== ENCOUNTER → 2021-09-18 | Outpatient (CLI) | payer MEDICARE, MEDICAID | LOC: COL.RAD 07:24 | DX: R11.2 Nausea with vomiting, unspecified (principal) | CPT/HCPCS: A9541 ==

== ENCOUNTER 2022-06-27 13:41 | Emergency (ER) | payer MEDICARE, MEDICAID ==
[~2022-06-27] VITALS: Ht 152.4 cm; Wt 61.8 kg
[2022-06-27 13:49] VITALS: BP 113/83; PULSE 97; TEMP 97.3
[2022-06-27] MEDS ORDERED: FLEXERIL 1010 MG/TAB PO (15:40)
== END 2022-06-27 15:56 | disposition home or self-care (01) ==
LOC: COL.ER 13:41
DX: M54.2 Cervicalgia (principal)
CPT/HCPCS: J1885; J2360

== ENCOUNTER 2022-06-28 01:26 | Emergency (ER) | payer MEDICARE, MEDICAID ==
[~2022-06-28] VITALS: Ht 152.4 cm; Wt 61.8 kg
[2022-06-28 01:57] LABS: BASO # 0.1 K/mm3 (0.0-0.2); EOS # 0.2 K/mm3 (0.0-0.7); EOS % 2.5 % (0.0-4.0); GRAN # 3.3 K/mm3 (1.4-6.5); HEMOGLOBIN 14.4 g/dl (12.5-16.0); LYMPH % 33.3 % (20.0-51.0); MEAN CELL VOLUME 92 fl (80.0-100.0); MEAN CORPUSCULAR HEMOGLOBIN 32 pg (27-31); MEAN CORPUSCULAR HGB CONC 34 g/dl (33.0-37.0); MEAN PLATELET VOLUME 11.4 fl (7.4-10.4); MONO # 0.5 K/mm3 (0.1-0.6); PLATELET COUNT 232 K/mm3 (130-400); RED BLOOD COUNT 4.55 M/mm3 (4.10-5.30); REDCELL DISTRIBUTION WIDTH-CV 11.6 % (11.5-14.5)
[2022-06-28 02:11] LABS: CREATININE, serum 1.12 mg/dL (0.57-1.11)
[2022-06-28 04:09] VITALS: BP 110/68; PULSE 96; TEMP 98.3
== END 2022-06-28 04:12 | disposition home or self-care (01) ==
LOC: COL.ER 01:26
PROVIDERS: Emergency Medicine
DX: M54.2 Cervicalgia (principal); R51.9 Headache, unspecified
CPT/HCPCS: J2270; Q9967

== ENCOUNTER 2023-02-28 00:04 | Emergency (ER) | payer MEDICARE, MEDICAID ==
[~2023-02-28] VITALS: Ht 152.4 cm; Wt 57.7 kg
[2023-02-28 00:09] VITALS: TEMP 97.8
[2023-02-28] MEDS ORDERED: NS 1,000 ML IV ONE (00:30)
[2023-02-28] MEDS ORDERED: Ondansetron 4 MG/2 ML VIAL IV ONE (00:45)
[2023-02-28 00:47] LABS: BASO # 0.1 K/mm3 (0.0-0.2); BASO % 0.7 % (0.0-2.0); EOS # 0.1 K/mm3 (0.0-0.7); EOS % 1.2 % (0.0-4.0); GRAN # 8.5 K/mm3 (1.4-6.5); GRAN % 80.4 % (42.2-75.2); HEMATOCRIT 42.1 % (37.0-47.0); HEMOGLOBIN 14.2 g/dl (12.5-16.0); LYMPH # 1.5 K/mm3 (1.2-3.4); LYMPH % 13.9 % (20.0-51.0); MEAN CELL VOLUME 93 fl (80.0-100.0); MEAN CORPUSCULAR HEMOGLOBIN 31 pg (27-31); MEAN CORPUSCULAR HGB CONC 34 g/dl (33.0-37.0); MEAN PLATELET VOLUME 11.2 fl (7.4-10.4); MONO # 0.4 K/mm3 (0.1-0.6); MONO % 3.4 % (1.7-9.3); PLATELET COUNT 224 K/mm3 (130-400); RED BLOOD COUNT 4.52 M/mm3 (4.10-5.30); REDCELL DISTRIBUTION WIDTH-CV 11.9 % (11.5-14.5)
[2023-02-28 01:05] LABS: ALANINE AMINOTRANSFERASE 22 U/L (0-55); ALBUMIN 4.3 gm/dL (3.5-5.0); ALKALINE PHOSPHATASE 52 U/L (40-150); ANION GAP 14 mmol/L (7-16); AST,SGOT 27 U/L (5-34); BILIRUBIN,TOTAL 0.9 mg/dL (0.2-1.2); BLOOD UREA NITROGEN 26 mg/dL (7-19); CALCIUM 9.5 mg/dL (8.4-10.2); CARBON DIOXIDE 15 mmol/L (22-29); CHLORIDE 104 mmol/L (98-107); CREATININE, serum 1.29 mg/dL (0.57-1.11); POTASSIUM 4.9 mmol/L (3.5-4.5); SODIUM 133 mmol/L (136-145); TOTAL PROTEIN 7.6 gm/dL (6.2-8.1)
[2023-02-28 01:07] LABS: ACETONE,SERUM SMALL
[2023-02-28 01:15] LABS: GLUCOSE 452 mg/dL (70-99)
[2023-02-28 02:02] VITALS: BP 100/63; PULSE 64
[2023-02-28 02:02] LABS: COLLECTION METHOD CLEAN CATCH
[2023-02-28 02:21] LABS: URINE COLOR Yellow (YELLOW)
[2023-02-28 02:22] LABS: BUDDING YEAST Present (NOT PRESENT); PH 5.5 (5.0-8.5); URINE APPEARANCE Clear (CLEAR/HAZY); URINE BACTERIA Rare /hpf (NONE SEEN); URINE BLOOD Negative (NEGATIVE); URINE GLUCOSE 2+ (NEGATIVE); URINE KETONE 4+ (NEGATIVE); URINE NITRATE Negative (NEGATIVE); URINE PROTEIN(semi-quant) Negative (NEGATIVE); URINE RBC 0-2 /hpf (0-2); URINE UROBILINOGEN 0.2 E.U/dL (0.2-1.0)
== END 2023-02-28 02:02 | disposition home or self-care (01) ==
LOC: COL.ER 00:04
PROVIDERS: Nurse Practitioner
DX: E10.65 Type 1 diabetes mellitus with hyperglycemia (principal); Z96.41 Presence of insulin pump (external) (internal)
CPT/HCPCS: J2405; J7030

== ENCOUNTER 2023-03-04 15:33 | Emergency (ER) | payer MEDICARE, MEDICAID ==
[~2023-03-04] VITALS: Ht 152.4 cm; Wt 57.7 kg
[2023-03-04 15:56] VITALS: TEMP 97.6
[2023-03-04 17:36] VITALS: BP 112/66; PULSE 90
== END 2023-03-04 17:39 | disposition home or self-care (01) ==
LOC: COL.ER 15:33
DX: S00.33XA Contusion of nose, initial encounter (principal); W54.1XXA Struck by dog, initial encounter

== ENCOUNTER 2023-08-10 03:49 | Emergency (ER) | payer MEDICARE, MEDICAID ==
[~2023-08-10] VITALS: Ht 152.4 cm; Wt 59.3 kg
[2023-08-10 04:22] VITALS: TEMP 98.3
[2023-08-10] MEDS ORDERED: Insulin Lispro (HumaLOG) SQ ONE (05:45)
[2023-08-10 06:39] VITALS: BP 125/86; PULSE 87
== END 2023-08-10 06:40 | disposition home or self-care (01) ==
LOC: COL.ER 03:49
DX: E10.9 Type 1 diabetes mellitus without complications (principal); F17.210 Nicotine dependence, cigarettes, uncomplicated; Z79.4 Long term (current) use of insulin; Z96.41 Presence of insulin pump (external) (internal)
CPT/HCPCS: J1815

== ENCOUNTER 2023-10-09 00:17 | Emergency (ER) | payer MEDICARE, MEDICAID ==
[~2023-10-09] VITALS: Ht 152.4 cm; Wt 58.6 kg
[2023-10-09] MEDS ORDERED: Cephalexin 500 MG CAP PO ONE (02:00)
[2023-10-09] MEDS ORDERED: CEPHALEXIN500 M1 PO (02:02)
[2023-10-09 02:17] VITALS: BP 127/60; PULSE 78; TEMP 98.1
== END 2023-10-09 02:17 | disposition home or self-care (01) ==
LOC: COL.ER 00:17
DX: S30.811A Abrasion of abdominal wall, initial encounter (principal); L03.311 Cellulitis of abdominal wall; E11.9 Type 2 diabetes mellitus without complications; Z79.4 Long term (current) use of insulin; Z88.1 Allergy status to other antibiotic agents; X58.XXXA Exposure to other specified factors, initial encounter

== ENCOUNTER 2023-10-26 19:47 | Emergency (ER) | payer MEDICARE, MEDICAID ==
[~2023-10-26] VITALS: Ht 152.4 cm; Wt 58.6 kg
[2023-10-26 20:01] VITALS: TEMP 97.9
[2023-10-26] MEDS ORDERED: NAPROXEN 3375 MG/TAB PO (23:03)
[2023-10-26] MEDS ORDERED: FLEXERIL 1010 MG/TAB PO (23:03)
[2023-10-26 23:30] VITALS: BP 112/76; PULSE 92
== END 2023-10-26 23:30 | disposition home or self-care (01) ==
LOC: COL.ER 19:47
DX: S16.1XXA Strain of muscle, fascia and tendon at neck level, initial encounter (principal); E11.9 Type 2 diabetes mellitus without complications; Z96.41 Presence of insulin pump (external) (internal); W18.30XA Fall on same level, unspecified, initial encounter; Y93.01 Activity, walking, marching and hiking

== ENCOUNTER 2023-11-08 07:05 | Emergency (ER) | payer MEDICARE, MEDICAID ==
[~2023-11-08] VITALS: Ht 152.4 cm; Wt 58.6 kg
[2023-11-08 07:12] VITALS: TEMP 98
[2023-11-08 07:59] LABS: BASO # 0.1 K/mm3 (0.0-0.2); BASO % 1.3 % (0.0-2.0); EOS # 0.2 K/mm3 (0.0-0.7); EOS % 2.9 % (0.0-4.0); GRAN # 4.2 K/mm3 (1.4-6.5); GRAN % 62.5 % (42.2-75.2); HEMATOCRIT 43.6 % (37.0-47.0); HEMOGLOBIN 14.4 g/dl (12.5-16.0); LYMPH # 1.9 K/mm3 (1.2-3.4); MEAN CELL VOLUME 95 fl (80.0-100.0); MEAN CORPUSCULAR HEMOGLOBIN 31 pg (27-31); MEAN CORPUSCULAR HGB CONC 33 g/dl (33.0-37.0); MEAN PLATELET VOLUME 12.7 fl (7.4-10.4); MONO # 0.4 K/mm3 (0.1-0.6); MONO % 5.2 % (1.7-9.3); PLATELET COUNT 256 K/mm3 (130-400); RED BLOOD COUNT 4.58 M/mm3 (4.10-5.30); REDCELL DISTRIBUTION WIDTH-CV 11.9 % (11.5-14.5)
[2023-11-08] MEDS ORDERED: NS 1,000 ML IV ONE (08:00)
[2023-11-08] MEDS ORDERED: Insulin Regular Human (NovoLIN R/HumuLIN R) IV ONE (08:00)
[2023-11-08 08:10] LABS: BILIRUBIN,TOTAL 0.6 mg/dL (0.2-1.2); CALCIUM 9.3 mg/dL (8.4-10.2); CREATININE, serum 1.26 mg/dL (0.57-1.11); POTASSIUM 4.1 mEq/L (3.5-4.5); TOTAL PROTEIN 7.2 g/dl (6.2-8.1)
[2023-11-08 09:04] VITALS: BP 106/69; PULSE 89
== END 2023-11-08 09:04 | disposition left against medical advice (07) ==
LOC: COL.ER 07:05
PROVIDERS: Personal Emergency Response Attendant
DX: E11.10 Type 2 diabetes mellitus with ketoacidosis without coma (principal); Z96.41 Presence of insulin pump (external) (internal)
CPT/HCPCS: J1815; J7030

== ENCOUNTER 2024-01-14 22:23 | Emergency (ER) | payer MEDICARE, MEDICAID ==
[~2024-01-14] VITALS: Ht 152.4 cm; Wt 58.6 kg
[2024-01-14 22:27] VITALS: TEMP 97.6
[2024-01-14] MEDS ORDERED: NS 1,000 ML IV ONE (22:45)
[2024-01-14 23:08] LABS: COLLECTION METHOD CLEAN CATCH
[2024-01-14 23:11] LABS: BASO # 0.1 K/mm3 (0.0-0.2); BASO % 0.9 % (0.0-2.0); EOS # 0.1 K/mm3 (0.0-0.7); EOS % 2.3 % (0.0-4.0); GRAN # 3.1 K/mm3 (1.4-6.5); GRAN % 54.1 % (42.2-75.2); HEMATOCRIT 40.7 % (37.0-47.0); HEMOGLOBIN 13.7 g/dl (12.5-16.0); LYMPH % 35.7 % (20.0-51.0); MEAN CELL VOLUME 93 fl (80.0-100.0); MEAN CORPUSCULAR HEMOGLOBIN 31 pg (27-31); MEAN CORPUSCULAR HGB CONC 34 g/dl (33.0-37.0); MEAN PLATELET VOLUME 11.9 fl (7.4-10.4); MONO # 0.4 K/mm3 (0.1-0.6); MONO % 6.8 % (1.7-9.3); PLATELET COUNT 215 K/mm3 (130-400); RED BLOOD COUNT 4.39 M/mm3 (4.10-5.30); REDCELL DISTRIBUTION WIDTH-CV 11.9 % (11.5-14.5)
[2024-01-14 23:13] LABS: PH 6.5 (5.0-8.5); URINE APPEARANCE CLEAR (CLEAR/HAZY); URINE BLOOD NEGATIVE (NEGATIVE); URINE COLOR YELLOW (YELLOW); URINE GLUCOSE 3+ (NEGATIVE); URINE KETONE 1+ (NEGATIVE); URINE NITRATE NEGATIVE (NEGATIVE); URINE PROTEIN(semi-quant) NEGATIVE (NEGATIVE); URINE UROBILINOGEN 0.2 E.U/dL (0.2-1.0)
[2024-01-14] MEDS ORDERED: Ketorolac 30 MG/ML VIAL IV ONE (23:15)
[2024-01-14] MEDS ORDERED: Ondansetron 4 MG/2 ML VIAL IV ONE (23:15)
[2024-01-14 23:17] LABS: ACETONE,SERUM NEGATIVE
[2024-01-14 23:29] LABS: ALANINE AMINOTRANSFERASE 17 U/L (0-55); ALBUMIN 4.1 g/dL (3.5-5.0); ALKALINE PHOSPHATASE 71 U/L (40-150); ANION GAP 12 mmol/L (7-16); AST,SGOT 20 U/L (5-34); BILIRUBIN,TOTAL 0.4 mg/dL (0.2-1.2); BLOOD UREA NITROGEN 15 mg/dL (7-19); CALCIUM 9.2 mg/dL (8.4-10.2); CHLORIDE 102 mEq/L (98-107); CREATININE, serum 1.32 mg/dL (0.57-1.11); GLUCOSE 370 mg/dL (70-99); POTASSIUM 3.7 mEq/L (3.5-4.5); SODIUM 137 mEq/L (136-145); TOTAL PROTEIN 7.2 g/dl (6.2-8.1)
[2024-01-14] MEDS ORDERED: Insulin Regular Human (NovoLIN R/HumuLIN R) IV ONE (23:45)
[2024-01-15] MEDS ORDERED: Dextrose 50% Water 25 GM/50 ML SYRINGE IV ONE (02:00)
[2024-01-15 02:47] VITALS: BP 106/69; PULSE 84
== END 2024-01-15 02:47 | disposition home or self-care (01) ==
LOC: COL.ER 22:23
PROVIDERS: Nurse Practitioner Primary Care
DX: E10.10 Type 1 diabetes mellitus with ketoacidosis without coma (principal); Z96.41 Presence of insulin pump (external) (internal)
CPT/HCPCS: J1815; J1885; J2405; J7030